=== PATIENT | female | born 1985 | race Caucasian/White ===

== ENCOUNTER → 2018-04-16 15:50 | Outpatient (CLI) | payer OTHER, SELFPAY ==
[2018-04-20 08:00] LABS: HPV HC, High Risk Negative (Negative)
== END ==
PROVIDERS: Visit Provider Obstetrics & Gynecology
DX: Z12.4 Encounter for screening for malignant neoplasm of cervix (principal); Z12.72 Encounter for screening for malignant neoplasm of vagina
CPT/HCPCS: 87624; 88175; G0145